=== PATIENT | male | born 2000 | race Caucasian/White ===

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

== ENCOUNTER 2020-05-01 01:49 | Emergency (ER) | payer OTHER, MEDICAID, SELFPAY ==
[2020-05-01 01:50] VITALS: BP 158/80; PULSE 94; RESP 18; TEMP 36.1; O2SAT 99; BMI 19.3
--- NOTE | 2020-05-01 02:02 | ED.VIS.GEN ---
History of Present Illness Chief Complaint: Laceration Informant: Patient Narrative: 19-year-old male sustained a left index finger laceration while using a knife tonight. Tetanus up-to-date. He is right-handed. Past Medical History - Allergies and Home Meds Allergies/Adverse Reactions: Allergies No Known Allergies Allergy (Verified 05/26/17 20:27) Primary Care Physician: NOT,DEFINED [Primary Care Provider] - Past Medical History: - - Spontaneous pneumothorax Surgical History: - - Bilateral lobectomy Smoking Status: Never smoker Drugs: None Review of Systems General: Denies: Chills, Fever, Sweats Eyes: Denies: Visual changes - bilaterally, Diplopia ENT: Denies: Rhinorrhea, Sore throat Cardiovascular: Denies: Chest pain, Palpitations Respiratory: Denies: Dyspnea, Cough, Dyspnea on exertion Gastrointestinal: Denies: Abdominal pain, Nausea, Vomiting, Diarrhea, Melena, Hematochezia Genitourinary: Denies: Dysuria, Hematuria, Frequency Musculoskeletal: Reports: Extremity Pain. Denies: Back pain Skin: Reports: Wounds. Denies: Rash Neurological: Denies: Headache, Weakness, Numbness Physical Exam Vital Signs/Narrative: Vital Signs Temp Pulse Resp BP Pulse Ox 05/01/20 01:50 97.0 F L 94 18 158/80 H 99 Inital Vital Signs reviewed: Yes General: Well nourished, Well developed, No Acute Distress Head: Normocephalic, Atraumatic Eyes: Perrl, EOMI ENT: Moist mucous membranes, No rhinorrhea Neck: Supple, Nontender Cardiovascular: Regular rate, Regular rhythm, No murmurs Respiratory: No distress, CTA bilaterally, Chest nontender Abdomen: Soft, Nontender, Nondistended, Normal bowel sounds Back: Nontender, Normal Inspection Extremities: Nontender, No edema Skin: Normal color, No rash, Trauma - Laceration over the medial volar surface of the left index finger just distal to the DIP joint. Neurovascular intact. Mild venous bleeding. Neurological: Alert, Oriented x3, Cranial nerves II-XII grossly intact, Normal Strength, Normal Sensation Psychological: Normal affect, Normal Mood Diagnostic/Tx/Re-eval - Medical Decision Making Patient underwent digital block using the single volar approach. After adequate time good anesthesia was obtained. Wound was washed with Shur-Clens and explored. No obvious tendon or bone damage. Laceration appeared to extend into the subcutaneous tissue. Wounds were closed using 5-0 Ethilon sutures. This provided good closure and homeostasis. Patient is up-to-date on his tetanus. He will be discharged home with supportive care stitches out 10 days. ED Disposition - Plan for ED Patient: Disposition: Home or Assisted Living Diagnosis: Finger laceration Instructions: ED Laceration, Hand: All Closures Referrals: NOT,DEFINED [Primary Care Provider] - 10 Day for suture removal (and to establish primary care)
[2020-05-01] MEDS: Lidocaine 1% (20 ml mdv) 20 ML Vial INFILT (02:44)
[2020-05-01 02:45] VITALS: PULSE 75; RESP 16; O2SAT 100
== END 2020-05-01 02:45 | disposition home or self-care (01) ==
PROVIDERS: Emergency Provider Emergency Medicine
DX: S61.211A Laceration without foreign body of left index finger without damage to nail, initial encounter (principal); W26.0XXA Contact with knife, initial encounter
CPT/HCPCS: 12001; 99284